=== PATIENT | female | born 1985 | race Caucasian/White ===

== ENCOUNTER → 2019-11-10 | Outpatient (CLI) | payer BC | END | disposition home or self-care (01) | LOC: LABWHC1 16:32 | PROVIDERS: ATTEND Obstetrics & Gynecology | DX: N92.6 Irregular menstruation, unspecified (principal) | CPT/HCPCS: 36415; 84144; 84702 ==

== ENCOUNTER → 2019-12-31 | Outpatient (CLI) | payer SELFPAY | END | disposition home or self-care (01) | LOC: LABWHC1 09:41 | PROVIDERS: ATTEND Obstetrics & Gynecology | DX: N91.2 Amenorrhea, unspecified (principal) | CPT/HCPCS: 36415; 84144; 84702 ==

== ENCOUNTER → 2020-05-25 | Outpatient (CLI) | payer OTHER ==
[2020-05-25 12:58] LABS: Glucose 3 Hour, Gest 121 mg/dL
== END | disposition home or self-care (01) ==
LOC: LABWHC1 08:32
PROVIDERS: ATTEND Obstetrics & Gynecology
DX: Z34.82 Encounter for supervision of other normal pregnancy, second trimester (principal); O99.810 Abnormal glucose complicating pregnancy; Z3A.00 Weeks of gestation of pregnancy not specified
CPT/HCPCS: 36415; 82951; 82952

== ENCOUNTER → 2024-09-01 | Outpatient (CLI) | payer OTHER ==
--- NOTE | 2024-09-01 12:07 | US ---
EXAMINATION TYPE: US kidneys/renal and bladder DATE OF EXAM: 09/01/2024 COMPARISON: NONE CLINICAL INDICATION: Female, 38 years old with history of N13.1 HYDRONEPHROSIS; Pt had an ultrasound done in [place] on 08/21/24 that stated she had left sided hydro. Pt is 32 weeks pg TECHNIQUE: Grayscale and color Doppler imaging of the bilateral kidneys and urinary bladder: EXAM MEASUREMENTS: Right Kidney: 11.2 x 5.9 x 5.1 cm Left Kidney: 11.9 x 5.9 x 6.4 cm Right Kidney: No hydronephrosis, nephrolithiasis or masses seen Left Kidney: Mild to moderate hydronephrosis seen. No nephrolithiasis. Bladder: wnl Bilateral Jets seen: Yes Renal cortical thickness and echogenicity is maintained. Intrauterine incidentally noted. IMPRESSION: Mild to moderate left hydronephrosis. No definite nephrolithiasis. [facility], Workstation: [facility] CENTERAppritySELECT [facility], 09/01/2024 12:05 PM
== END | disposition home or self-care (01) ==
LOC: RADUSWWP 08:17
PROVIDERS: ATTEND Urology
DX: N13.1 Hydronephrosis with ureteral stricture, not elsewhere classified (principal)
CPT/HCPCS: 76770